=== PATIENT | male | born 1985 | race American Indian/Alaskan Native ===

== ENCOUNTER 2017-04-24 20:38 | Emergency (ER) | payer OTHER ==
[2017-04-24 21:06] LABS: Basophils % (Auto) 0.5 % (0.0-1.8); Hematocrit 46.1 % (35.5-45.6); Hemoglobin 15.4 gm/dl (11.8-15.2); Mean Corpuscular HGB Conc 33 % (32-34); Mean Corpuscular Hemoglobin 29 pg (28-32); Mean Corpuscular Volume 86 fl (84-94); Platelet Count 136 K/mm3 (140-440); Red Blood Count 5.36 M/mm3 (3.65-5.03); Red Cell Distribution Width 12.4 % (13.2-15.2); White Blood Count 6.3 K/mm3 (4.5-11.0)
[2017-04-24 21:22] LABS: Anion Gap 20 mmol/L; BUN/Creatinine Ratio 18.57; Blood Urea Nitrogen 13 mg/dL (9-20); Calcium 9.6 mg/dL (8.4-10.2); Carbon Dioxide 25 mmol/L (22-30); Chloride 92.6 mmol/L (98-107); Potassium 4.2 mmol/L (3.6-5.0); Sodium 133 mmol/L (137-145)
[2017-04-24 21:30] LABS: Glucose 615 mg/dL (75-100)
[2017-04-24] MEDS ORDERED: NACL 0.9% 1000 ML 1,000 ML IV ONE ×2 (22:16)
[2017-04-24 22:43] LABS: Bilirubin,Urine NEG (Negative); Blood,Urine NEG (Negative); Ketones,Urine TR mg/dL (Negative); Leukocyte Esterase,Urine NEG (Negative); Mucus,Urine FEW /HPF; Nitrite,Urine NEG (Negative); Protein,Urine <15 mg/dL mg/dL (Negative); Urobilinogen,Urine < 2.0 mg/dL (<2.0)
[2017-04-24 22:55] LABS: Alanine Aminotransferase 52 units/L (7-56); Albumin 4.4 g/dL (3.9-5); Albumin/Globulin Ratio 1.2 %; Alkaline Phosphatase 82 units/L (35-129); Creatine Kinase 97 units/L (55-170); Lipase 47 units/L (13-60); Total Protein 8.1 g/dL (6.3-8.2)
[2017-04-24 22:59] LABS: Bilirubin,Direct < 0.2 mg/dL (0-0.2); Bilirubin,Indirect 0.7 mg/dL; Creatine Kinase MB < 1.0 ng/mL (0.0-4.0)
[2017-04-24] MEDS ORDERED: MORPHINE IV ONE (23:23)
[2017-04-24] MEDS ORDERED: ZOFRAN IV ONE (23:23)
[2017-04-24] MEDS ORDERED: PEPCID IV ONE (23:23)
--- NOTE | 2017-04-25 00:44 | Emergency Department Report ---
ED Syncope HPI - General Chief Complaint: Hyperglycemia Stated Complaint: SYNCOPE/DIABETIC/NAUSEA/ACID REFLUX Time Seen by Provider: 04/24/17 22:15 Source: patient Exam Limitations: no limitations - History of Present Illness Initial Comments: 31-year-old male with past medical history [id number] diabetes and obesity presents to the hospital with syncopal episode times one at work today. Patient was outside in heat, felt lightheaded, nauseated, and passed out. Denies headache, chest pain, or shortness of breath. Patient reports he has been having abdominal discomfort throughout the day with nausea. Therefore, patient did not eat today and did not take his metformin because he did not eat. Patient had 2 episodes of vomiting after syncopal episode. Patient thought he was constipated due to infrequent bowel movements. Patient had a bowel movement today after taking Eloxatin. No reports of fever, vomiting, melena, or hematochezia. Denies previous abdominal surgeries. Patient also complaining of acid reflux symptoms. - Related Data Allergies/Adverse Reactions: Allergies No Known Allergies Allergy (Verified 08/29/16 19:39) Home Medications: Ambulatory Orders Lisinopril [Zestril TAB] 20 mg PO QDAY #30 tablet 08/30/16 glipiZIDE [glipiZIDE XL] 10 mg PO DAILY #30 tab.er.24 08/30/16 Metformin HCl [Glucophage] 1,000 mg PO BID #60 tablet 04/25/17 Pioglitazone [Actos] 15 mg PO QDAY #30 tablet 04/25/17 ED Review of Systems ROS: Stated complaint: SYNCOPE/DIABETIC/NAUSEA/ACID REFLUX Other details as noted in HPI Comment: All other systems reviewed and negative Other: Constitutional: No fevers chills Eyes: No eye pain visual changes ENT: No ear pain or throat pain Neck: Denies pain Respiratory: Denies cough wheezing shortness of breath Cardiovascular: Denies chest pain, palpitations GI: As per HPI : Denies dysuria Musculoskeletal: Denies back pain, joint swelling Skin: Denies rash, lesions, erythema Neurologic: Denies headache, numbness Psychiatric: Denies suicidal ideation, hallucinations ED Past Medical Hx - Past Medical History Previous Medical History?: Yes Hx Diabetes: Yes - Surgical History Past Surgical History?: No - Social History Smoking Status: Never Smoker Substance Use Type: None - Medications Home Medications: Home Medications Medication Instructions Recorded Confirmed Last Taken Type Lisinopril [Zestril TAB] 20 mg PO QDAY #30 tablet 08/30/16 04/25/17 Unknown Rx glipiZIDE [glipiZIDE XL] 10 mg PO DAILY #30 tab.er.24 08/30/16 04/25/17 Unknown Rx Metformin HCl [Glucophage] 1,000 mg PO BID #60 tablet 04/25/17 Unknown Rx Pioglitazone [Actos] 15 mg PO QDAY #30 tablet 04/25/17 Unknown Rx ED Physical Exam - General Limitations: No Limitations - Other Other exam information: General: No limitations, patient is alert in no acute distress Head exam: Atraumatic, normocephalic Eyes exam: Normal appearance, pupils equal reactive to light, extraocular movements intact ENT: Moist mucous membrane, normal oropharynx Neck exam: Normal inspection, full range of motion, no meningismus nontender Respiratory exam: Clear to auscultation bilateral, no wheezes, rales, crackles Cardiovascular: Normal rate and rhythm, normal heart sounds Abdomen: Soft, nondistended, right upper quadrant and epigastric tenderness on palpation, with normal bowel sounds, no rebound, or guarding Extremity: Full range of motion normal inspection no deformity Back: Normal Inspection, full range of motion, no tenderness Neurologic: Alert, oriented x3, cranial nerves intact, no motor or sensory deficit Psychiatric: normal affect, normal mood Skin: Warm, dry, intact ED Course Vital Signs 04/24/17 04/24/17 04/25/17 20:47 22:49 00:30 Temperature 98.1 F 98.8 F Pulse Rate 94 H 113 H Respiratory 18 20 20 Rate Blood Pressure 167/111 Blood Pressure 130/84 [Left] O2 Sat by Pulse 98 100 100 Oximetry - Reevaluation(s) Reevaluation #1: 04/25/17 00:43 Orthostatic vital signs positive. Blood pressure improved compared to initial triage pressure without medication ED Medical Decision Making - Lab Data Result diagrams: 04/24/17 20:54 04/24/17 20:54 Lab Results 04/24/17 04/24/17 04/24/17 Range/Units 20:43 20:54 20:54 WBC 6.3 (4.5-11.0) K/mm3 RBC 5.36 H (3.65-5.03) M/mm3 Hgb 15.4 H (11.8-15.2) gm/dl Hct 46.1 H (35.5-45.6) % MCV 86 (84-94) fl MCH 29 (28-32) pg MCHC 33 (32-34) % RDW 12.4 L (13.2-15.2) % Plt Count 136 L (140-440) K/mm3 Lymph % (Auto) 42.8 H (13.4-35.0) % [place] % (Auto) 9.9 H (0.0-7.3) % Eos % (Auto) 1.0 (0.0-4.3) % Baso % (Auto) 0.5 (0.0-1.8) % Lymph # 2.7 (1.2-5.4) K/mm3 [place] # 0.6 (0.0-0.8) K/mm3 Eos # 0.1 (0.0-0.4) K/mm3 Baso # 0.0 (0.0-0.1) K/mm3 Seg Neutrophils % 45.8 (40.0-70.0) % Seg Neutrophils # 2.9 (1.8-7.7) K/mm3 VBG pH (7.320-7.420) Sodium 133 L (137-145) mmol/L Potassium 4.2 (3.6-5.0) mmol/L Chloride 92.6 L (98-107) mmol/L Carbon Dioxide 25 (22-30) mmol/L Anion Gap 20 mmol/L BUN 13 (9-20) mg/dL Creatinine 0.7 L (0.8-1.5) mg/dL Estimated GFR > 60 ml/min BUN/Creatinine Ratio 18.57 % Glucose 615 H* (75-100) mg/dL POC Glucose > 500 H (70-105) Calcium 9.6 (8.4-10.2) mg/dL Total Bilirubin (0.1-1.2) mg/dL Direct Bilirubin (0-0.2) mg/dL Indirect Bilirubin mg/dL AST (5-40) units/L ALT (7-56) units/L Alkaline Phosphatase (35-129) units/L Total Creatine Kinase (55-170) units/L CK-MB (CK-2) (0.0-4.0) ng/mL CK-MB (CK-2) Rel Index (0-4) Troponin T (0.00-0.029) ng/mL Total Protein (6.3-8.2) g/dL Albumin (3.9-5) g/dL Albumin/Globulin Ratio % Lipase (13-60) units/L Urine Color (Yellow) Urine Turbidity (Clear) Urine pH (5.0-7.0) Ur Specific [place] (1.003-1.030) Urine Protein (Negative) mg/dL Urine Glucose (UA) (Negative) mg/dL Urine Ketones (Negative) mg/dL Urine Blood (Negative) Urine Nitrite (Negative) Urine Bilirubin (Negative) Urine Urobilinogen (<2.0) mg/dL Ur Leukocyte Esterase (Negative) Urine WBC (Auto) (0.0-6.0) /HPF Urine RBC (Auto) (0.0-6.0) /HPF Urine Mucus /HPF 04/24/17 04/24/17 04/24/17 Range/Units 20:54 20:54 20:54 WBC (4.5-11.0) K/mm3 RBC (3.65-5.03) M/mm3 Hgb (11.8-15.2) gm/dl Hct (35.5-45.6) % MCV (84-94) fl MCH (28-32) pg MCHC (32-34) % RDW (13.2-15.2) % Plt Count (140-440) K/mm3 Lymph % (Auto) (13.4-35.0) % [place] % (Auto) (0.0-7.3) % Eos % (Auto) (0.0-4.3) % Baso % (Auto) (0.0-1.8) % Lymph # (1.2-5.4) K/mm3 [place] # (0.0-0.8) K/mm3 Eos # (0.0-0.4) K/mm3 Baso # (0.0-0.1) K/mm3 Seg Neutrophils % (40.0-70.0) % Seg Neutrophils # (1.8-7.7) K/mm3 VBG pH 7.404 (7.320-7.420) Sodium (137-145) mmol/L Potassium (3.6-5.0) mmol/L Chloride (98-107) mmol/L Carbon Dioxide (22-30) mmol/L Anion Gap mmol/L BUN (9-20) mg/dL Creatinine (0.8-1.5) mg/dL Estimated GFR ml/min BUN/Creatinine Ratio % Glucose (75-100) mg/dL POC Glucose (70-105) Calcium (8.4-10.2) mg/dL Total Bilirubin 0.90 (0.1-1.2) mg/dL Direct Bilirubin < 0.2 (0-0.2) mg/dL Indirect Bilirubin 0.7 mg/dL AST 24 (5-40) units/L ALT 52 (7-56) units/L Alkaline Phosphatase 82 (35-129) units/L Total Creatine Kinase 97 (55-170) units/L CK-MB (CK-2) < 1.0 (0.0-4.0) ng/mL CK-MB (CK-2) Rel Index 1.0 (0-4) Troponin T < 0.010 (0.00-0.029) ng/mL Total Protein 8.1 (6.3-8.2) g/dL Albumin 4.4 (3.9-5) g/dL Albumin/Globulin Ratio 1.2 % Lipase 47 (13-60) units/L Urine Color (Yellow) Urine Turbidity (Clear) Urine pH (5.0-7.0) Ur Specific [place] (1.003-1.030) Urine Protein (Negative) mg/dL Urine Glucose (UA) (Negative) mg/dL Urine Ketones (Negative) mg/dL Urine Blood (Negative) Urine Nitrite (Negative) Urine Bilirubin (Negative) Urine Urobilinogen (<2.0) mg/dL Ur Leukocyte Esterase (Negative) Urine WBC (Auto) (0.0-6.0) /HPF Urine RBC (Auto) (0.0-6.0) /HPF Urine Mucus /HPF 04/24/17 Range/Units 21:54 WBC (4.5-11.0) K/mm3 RBC (3.65-5.03) M/mm3 Hgb (11.8-15.2) gm/dl Hct (35.5-45.6) % MCV (84-94) fl MCH (28-32) pg MCHC (32-34) % RDW (13.2-15.2) % Plt Count (140-440) K/mm3 Lymph % (Auto) (13.4-35.0) % [place] % (Auto) (0.0-7.3) % Eos % (Auto) (0.0-4.3) % Baso % (Auto) (0.0-1.8) % Lymph # (1.2-5.4) K/mm3 [place] # (0.0-0.8) K/mm3 Eos # (0.0-0.4) K/mm3 Baso # (0.0-0.1) K/mm3 Seg Neutrophils % (40.0-70.0) % Seg Neutrophils # (1.8-7.7) K/mm3 VBG pH (7.320-7.420) Sodium (137-145) mmol/L Potassium (3.6-5.0) mmol/L Chloride (98-107) mmol/L Carbon Dioxide (22-30) mmol/L Anion Gap mmol/L BUN (9-20) mg/dL Creatinine (0.8-1.5) mg/dL Estimated GFR ml/min BUN/Creatinine Ratio % Glucose (75-100) mg/dL POC Glucose (70-105) Calcium (8.4-10.2) mg/dL Total Bilirubin (0.1-1.2) mg/dL Direct Bilirubin (0-0.2) mg/dL Indirect Bilirubin mg/dL AST (5-40) units/L ALT (7-56) units/L Alkaline Phosphatase (35-129) units/L Total Creatine Kinase (55-170) units/L CK-MB (CK-2) (0.0-4.0) ng/mL CK-MB (CK-2) Rel Index (0-4) Troponin T (0.00-0.029) ng/mL Total Protein (6.3-8.2) g/dL Albumin (3.9-5) g/dL Albumin/Globulin Ratio % Lipase (13-60) units/L Urine Color Straw (Yellow) Urine Turbidity Clear (Clear) Urine pH 5.0 (5.0-7.0) Ur Specific [place] 1.036 H (1.003-1.030) Urine Protein <15 mg/dl (Negative) mg/dL Urine Glucose (UA) >=500 (Negative) mg/dL Urine Ketones Tr (Negative) mg/dL Urine Blood Neg (Negative) Urine Nitrite Neg (Negative) Urine Bilirubin Neg (Negative) Urine Urobilinogen < 2.0 (<2.0) mg/dL Ur Leukocyte Esterase Neg (Negative) Urine WBC (Auto) 1.0 (0.0-6.0) /HPF Urine RBC (Auto) 1.0 (0.0-6.0) /HPF Urine Mucus Few /HPF - EKG Data -: EKG Interpreted by Me (sinus rate [address] elevation UT or T inversion) - EKG Data When compared to previous EKG there are: previous EKG unavailable - Radiology Data Radiology results: report reviewed ct a/p: naf, fatty liver us abd: naf, renal cyst, fatty liver - Medical Decision Making pt glucose improving. No DKA Pt cant have metformin for 48hrs Pt has been actos previously as well and will be re-prescribed Pt admits to chronic med noncompliance (metformin) - Differential Diagnosis DKA, dehydration, anemia, cholelithiasis/cystitis, pancreatitis, UT Critical Care Time: No Critical care attestation.: If time is entered above; I have spent that time in minutes in the direct care of this critically ill patient, excluding procedure time. ED Disposition Clinical Impression: Hyperglycemia, Noncompliance with medication regimen, Syncope, Dehydration Disposition: -01 TO HOME OR SELFCARE Is pt being admited?: No Does the pt Need Aspirin: No Condition: Stable Instructions: Syncope (ED), Diabetic Hyperglycemia (ED) Additional Instructions: Take medication as prescribed (continue metformin too) Follow up with your Primary doctor. Return if symptoms worsen. Prescriptions: Metformin HCl [Glucophage] 1,000 mg PO BID #60 tablet Pioglitazone [Actos] 15 mg PO QDAY #30 tablet Referrals: ESTRELLA TORRES MD [Primary Care Provider] - 3-5 Days Time of Disposition: 06:01
--- NOTE | 2017-04-25 01:07 | Cat Scan Report ---
FINAL REPORT PROCEDURE: CT ABDOMEN PELVIS W CON TECHNIQUE: Computerized axial tomography of the abdomen and pelvis was performed after the IV injection of iodinated nonionic contrast. HISTORY: abd pain, n,v, COMPARISON: No prior studies are available for comparison. FINDINGS: Visualized lower thorax: No significant abnormality. Liver: The liver is fatty infiltrated. Spleen: Normal size and attenuation. Gallbladder and biliary system: Normal. Pancreas: Normal. Adrenals: Normal. Kidneys: Normal. GI tract: There is no evidence intestinal obstruction. No ileus or enteritis. The cecum appendix and colon are normal.. Lymph nodes and mesentery: Normal. Vasculature: Normal. Bladder: Normal. Reproductive organs: Normal. Peritoneum: No free fluid. Musculoskeletal structures: No significant abnormality. Other: None. IMPRESSION: There is no evidence of intestinal or urinary tract obstruction. No ileus or enteritis. The appendix is normal. The liver is fatty infiltrated
[2017-04-25] MEDS ORDERED: NACL 0.9% 1000 ML 1,000 ML IV ONE ×2 (01:42→04:32)
--- NOTE | 2017-04-25 01:49 | Ultrasound Report ---
FINAL REPORT PROCEDURE: US ABDOMEN COMPLETE TECHNIQUE: Real-time sonography in multiple planes of the abdomen was performed with image documentation. CPT 62493 HISTORY: ruq pain, n,v COMPARISON: No prior studies are available for comparison. FINDINGS: Liver: Liver size is normal. Liver is fatty infiltrated.. Gallbladder: Fluid filled. No gallstones, wall thickening, pericholecystic fluid, or sonographic Caba's sign. Intrahepatic bile ducts: Normal caliber . Extrahepatic bile ducts: Normal caliber. Pancreas: Normal as visualized with suboptimal depiction of the pancreatic tail. Aorta: Visualized portions appear normal. IVC: Visualized portions appear normal. RIGHT kidney: Normal echotexture. No focal renal mass, calculus, or hydronephrosis. Length: 10.9cm. LEFT kidney: There is a small area of hyper echogenicity in the left renal cortex. This may represent a complicated cyst. This region measures 2.8 x 2.8 by 2 centimeters. Length: 11.4cm. Spleen: Normal size and echotexture. No focal lesions. Intraperitoneal fluid: None . Other: None . IMPRESSION: The liver is fatty infiltrated. There is a 2.8 centimeter area of hyper echogenicity in the left renal cortex. A complicated cyst is suspected..
[2017-04-25] MEDS ORDERED: GLUCOPHAGE PO ONE (05:32)
[2017-04-25] MEDS ORDERED: GLUCOTROL XL PO ONE (05:36)
[2017-04-25 06:20] VITALS: BP 136/84
== END 2017-04-25 06:20 | disposition home or self-care (01) ==
LOC: ED 20:38
DX: E11.65 Type 2 diabetes mellitus with hyperglycemia (principal); R55 Syncope and collapse; E86.0 Dehydration
CPT/HCPCS: 36415; 74177; 76700; 80048; 80074; 81001; 82550; 82553; 82805; 82962; 83690; 84484; 85025; 93005; 93010; 96361; 96374; 96375; 96376; 99285; J2270; J2405; J7030; Q9967; J1815